=== PATIENT | female | born 1970 | race Caucasian/White ===

== ENCOUNTER → 2020-10-07 10:28 | Outpatient (CLI) | payer OTHER, SELFPAY ==
[2020-10-07 20:50] LABS: Appearance Urine UA CLEAR; Bilirubin Urine UA NEGATIVE (NEGATIVE); Ketones Urine UA NEGATIVE (NEGATIVE)
[2020-10-07 21:41] LABS: Color Urine UA ORANGE
[2020-10-07 21:44] LABS: Leukocyte Esterase Urine UA 2+ (NEGATIVE)
[2020-10-07 21:45] LABS: Bacteria Urine Many (>30); Culture Indicated Urine Specimen Cultured; RBC Urine 5-10/HPF (0-5/HPF); Squamous Epithelial Cell Urine 0-1 /HPF (0-5/HPF); WBC Urine 30-100/HPF (0-5/HPF)
== END ==
PROVIDERS: PCP Physician Assistant; Visit Provider Physician Assistant
DX: N30.00 Acute cystitis without hematuria (principal); R30.0 Dysuria
CPT/HCPCS: 81001; 87077; 87086; 87186